=== PATIENT | female | born 1980 | race Two or more races ===

== ENCOUNTER → 2024-09-25 | Outpatient (BNVA) | payer BC, SELFPAY | END | disposition home or self-care (01) | PROVIDERS: PCP Nurse Practitioner Primary Care; Referring Provider Nurse Practitioner Primary Care; Visit Provider Nurse Practitioner Primary Care | DX: H92.02 Otalgia, left ear (principal); K03.81 Cracked tooth | CPT/HCPCS: 99213 ==